=== PATIENT | female | born 1950 | race Caucasian/White ===

== ENCOUNTER 2021-10-13 11:36 | Emergency (ER) | payer MEDICARE, SELFPAY ==
[2021-10-13 11:39] VITALS: BP 141/95; PULSE 77; RESP 17; TEMP 36.3; O2SAT 99; BMI 18.9
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
[2021-10-13] MEDS: Lidocaine 1% (20 ml mdv) 20 ML Vial INFILT (14:30)
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
== END 2021-10-13 15:01 | disposition home or self-care (01) ==
PROVIDERS: Emergency Provider Emergency Medicine; PCP Internal Medicine; Visit Provider Emergency Medicine
DX: S62.511A Displaced fracture of proximal phalanx of right thumb, initial encounter for closed fracture (principal); V10.4XXA Pedal cycle driver injured in collision with pedestrian or animal in traffic accident, initial encounter; Y93.55 Activity, bike riding; S61.011A Laceration without foreign body of right thumb without damage to nail, initial encounter
CPT/HCPCS: 12001; 70450; 73140; 99283

== ENCOUNTER 2023-01-15 07:00 | Outpatient (RCR) | payer MEDICARE, SELFPAY ==
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
--- NOTE | 2023-01-15 07:29 | HP.PTDCSUM ---
Discharge Summary D/C summary: It has been my pleasure to treat RUEL MCKEON referred by HARLEY GRANADOS, with the diagnosis of BACK PAIN for a total of 7 visit(s). Discharge Date: Please see the following information for a summary of their discharge status. Subjective Subjective: Doing well Pain Left Back: Pain Intensity (Out of 10): 1 Overall Improvement % Improvement: 95 Objective Objective/Function: POSTURE: mild forward posture PALPATION: tender LS /SI left NEURO: denies paresthesia/tingling ,reflexes L3-4,L4-L5 ,L5-S1 GAIT: reciprocal pattern SYMMTRIES : align MMT: quads/hamstrings 4/5 ,hip flexion 4/5 ,hip abduction ( peak force) 28.9 R ,left 27.1 LUMBAR ROM: flexion min loss ,extension mod loss ,side glides min loss HIP IR : left 30 degrees ,50 degrees FLEXABLITY: hamstrings min loss ,piriformis left mod loss Goals Goal 1:: Patient to be I with HEP for back Goal 2:: Patient to improve lumbar ROM for function of recovery for ADL's without pain Goal 3:: Patient to demonstrate 50% improvement with decrease pain and improved function Goal 4:: Patient to improve back oswestry back by 5 points to improve QOL and function Plan Plan: D/C D/C Information d/c sentence: If there are questions or concerns regarding this patient's physical therapy, please feel free to call me at [phone]. Thank you for the referral of this patient. Sincerely, Seth Bosch, PT, Cert MDT, OCS Balance/Gait/Functional tests Balance/Special Test Scores Oswestry Low Back Score: 4 Improvement % Improvement: 95
== END 2023-01-15 10:45 | disposition home or self-care (01) ==
LOC: PT 07:00
PROVIDERS: PCP Internal Medicine
DX: M54.50 Low back pain, unspecified (principal)
CPT/HCPCS: 97110; 97162

== ENCOUNTER → 2023-05-13 | Outpatient (CLI) | payer MEDICARE, SELFPAY ==
--- OUTSIDE RECORDS SUMMARY | 2023-05-13 16:05 | XMS RPT_ITS | CCD ---
Author Name Unknown Address [address] [place] [address] Organization [facility] Care Team Providers Care Computer Network Engineer Name Role Phone Hang Castellano MD Primary Care Provider TALALMA, HANG D Primary Care Unavailable VASQUEZ, CHARLEE Referring Unavailable TALAMPAS, HANG D Primary Care Unavailable VASQUEZ, CHARLEE Attending Unavailable TALAMPAS, HANG D Referring Unavailable TALAMPAS, HANG D Primary Care Unavailable TALAMPAS, HANG D Primary Care Unavailable TALAMPAS, HANG D Primary Care Unavailable VASQUEZ, CHARLEE Referring Unavailable TALAMPAS, HANG D Primary Care Unavailable TALAMPAS, HANG D Referring Unavailable TALAMPAS, HANG D Primary Care Unavailable VASQUEZ, CHARLEE Referring Unavailable TALAMPAS, HANG D Primary Care Unavailable VASQUEZ, CHARLEE Referring Unavailable Allergies Allergy Classification Reported Allergen(s) Allergy Type Date of Onset Reaction(s) Facility (20 sources) Seasonal allergy; Translations: [SEASONAL ALLERGIES] Allergy to substance 9 Other: See Comments [facility] Work Phone: Medications Current Medications Medication Drug Class(es) Dates Sig (Normalized) Sig (Original) rosuvastatin calcium 5 mg oral tablet (10 sources) HMG-CoA Reductase Inhibitor Start: 12-24-2022 End: 12-24-2023 take 1 tablet by mouth once daily in the evening rosuvastatin (CRESTOR) 5 mg tablet Indications: Hypercholesterolemia Take 1 tablet by mouth once daily. Take in evening 90 tablet 3 12/24/2022 12/24/2023 Active Completed/Discontinued Medications Medication Drug Class(es) Dates Sig (Normalized) Sig (Original) calcium, elemental, ORAL Tab (20 sources) take 1 tablet by brittnee th twice daily calcium, elemental, ORAL Tab Take 1 tablet by mouth twice daily. 0 Active Problems Active Problems Problem Classification Problem Date Documented Da te Episodic/Chronic Disorders of lipid metabolism (20 sources) Hypercholesterolemi a; Translations: [Pure hypercholesterolemi a, unspecified] Onset: 07-06-2014 07-06-2014 Chronic Essential hypertension (20 sources) Essential hypertension; Translations: [Essential (primary) hypertension] Onset: 04-14-2011 10-11-2017 Chronic Osteoporosis (20 sources) Senile osteoporosis; Translations: [Age-related osteoporosis without current pathological fracture] Onset: 11-05-2017 11-05-2017 Chronic Other aftercare (1 source) Removal of sutures done; Translations: [Encounter for removal of sutures] Episodic Other injuries and conditions due to external causes (1 source) Injury of head; Translations: [Unspecified injury of head, initial encounter] Episodic Other screening for suspected conditions (not mental disorders or infectious disease) (16 sources) Patient encounter status; Translations: [Encounter for screening mammogram for malignant neoplasm of breast] Onset: 02-17-2023 Episodic Past or Other Problems Problem Classification Problem Date Documented Da te Episodic/Chronic Immunizations and screening for infectious disease (1 source) Encounter for immunization; Translations: [Encounter for immunization] Onset: 12-24-2022 Episodic Other aftercare (1 source) Other oysterman (current) drug therapy; Translations: [Encounter for long-term current use of medication] Onset: 11-26-2022 Episodic Pneumonia (except that caused by tuberculosis or sexually transmitted disease) (20 sources) Pneumonia; Translations: [Pneumonia, unspecified organism] Onset: 08-06-2010 04-14-2021 Episodic Results Test Name Value Interpretation Reference Range Facil ity Vital Signs Date Time Vital Sign Value Performing Clinician Melvin ge 12-24-2022 09:29-0400 Diastolic blood pressure 75 mm[Hg] Charlee Vasquez APRN.SUPPLIER QUALITY MANAGER Work Phone: [facility] 12-24-2022 09:29-0400 Heart rate 61 /min Charlee Vasquez APRN.SUPPLIER QUALITY MANAGER Work Phone: [facility] 12-24-2022 09:29-0400 Systolic blood pressure 129 mm[Hg] Charlee Vasquez APRN.SUPPLIER QUALITY MANAGER Work Phone: [facility] 12-24-2022 09:18-0400 Body height 160.7 cm Charlee Vasquez BLUNGER MACHINE OPERATOR.SUPPLIER QUALITY MANAGER Work Phone: [facility] 12-24-2022 09:18-0400 Body weight 51.26 kg Charlee Vasquez BLUNGER MACHINE OPERATOR.SUPPLIER QUALITY MANAGER Work Phone: [facility] 12-24-2022 09:18-0400 Respiratory rate 16 /min Charlee Vasquez BLUNGER MACHINE OPERATOR.SUPPLIER QUALITY MANAGER Work Phone: [facility] 12-19-2021 08:52-0400 Diastolic blood pressure 70 mm[Hg] Hang Castellano MD Work Phone: [facility] 12-19-2021 08:52-0400 Systolic blood pressure 112 mm[Hg] Hang Castellano MD Work Phone: [facility] 12-19-2021 08:03-0400 Body height 161 cm Hang Castellano MD Work Phone: [facility] 12-19-2021 08:03-0400 Body weight 49.9 kg Hang Castellano MD Work Phone: [facility] 12-19-2021 08:03-0400 Heart rate 69 /min Hang Castellano MD Work Phone: [facility] 12-19-2021 08:03-0400 SaO2% (BldA) [Mass fraction] 100 % Hang Castellano MD Work Phone: [facility] 10-21-2021 08:15-0400 Body temperature 98.71 [degF] Praveen Tinoco BLUNGER MACHINE OPERATOR.YARDING SUPERVISOR Work Phone: [facility] 10-21-2021 08:15-0400 Body weight 51.71 kg Praveen Tinoco BLUNGER MACHINE OPERATOR.YARDING SUPERVISOR Work Phone: [facility] 10-21-2021 08:15-0400 Diastolic blood pressure 82 mm[Hg] Praveen Tinoco BLUNGER MACHINE OPERATOR.YARDING SUPERVISOR Work Phone: [facility] 10-21-2021 08:15-0400 Heart rate 72 /min Praveen Tinoco BLUNGER MACHINE OPERATOR.YARDING SUPERVISOR Work Phone: [facility] 10-21-2021 08:15-0400 Respiratory rate 16 /min [facility] BLUN[facility] MACHINE OPERATOR.YARDING SUPERVISOR Work Phone: [facility] 10-21-2021 08:15-0400 SaO2% (BldA) [Mass fraction] 99 % [facility] BLUNGER MACHINE OPERATOR.YARDING SUPERVISOR Work Phone: [facility] 10-21-2021 08:15-0400 Systolic blood pressure 120 mm[Hg] [facility] BLUNGER MACHINE OPERATOR.YARDING SUPERVISOR Work Phone: [facility] Encounters Encounter Date Encounter Type Care Provider Facility Start: 04-03-2023 End: 04-04-2023 ambulatory HANG CASTELLANO Facility:[facility] Start: 04-01-2023 Telephone encounter Hang nesbitt MD Work Phone: [facility] Start: 03-23-2023 Refill Hang johnson MD Work Phone: [facility] Procedures Date Procedure Procedure Detail Performing Clinician Start: 04-03-2023 Lipid 1996 panel - S sammy or Plasma Hang Castellano MD Work Phone: Start: 03-16-2023 Us breast uni real t katelyn with image limited [facility] BLUNGER MACHINE OPERATOR.SUPPLIER QUALITY MANAGER Work Phone: Start: 03-16-2023 Digital breast tomosynthesis unilateral [facility] BLUNGER MACHINE OPERATOR.SUPPLIER QUALITY MANAGER Work Phone: Start: 02-17-2023 Screening digital br east tomosynthesis bi [facility] BLUNGER MACHINE OPERATOR.SUPPLIER QUALITY MANAGER Work Phone: Start: 11-26-2022 Lipid 1996 panel - S sammy or Plasma Hang Castellano MD Work Phone: Start: 02-09-2022 KAELYN SCREENING W JOSE Castellano MD Work Phone: Start: 02-09-2022 Mammography Mammograph y Coordinator Start: 12-29-2021 COLOGUARD Hang nesbitt MD Work Phone: Start: 12-19-2021 INFLUENZA SEASONAL QUADRIVALENT HIGH DOSE AGE 65+ Hang Castellano MD Work Phone: Start: 12-15-2020 Adult depression scr eening assessment Cira Teixeira MA Start: 09-30-2020 Mammography Cira Jessica johnson GREGORIO Start: 07-31-2011 Colonoscopy Cira johnson GREGORIO Plan of Treatment Date Care Activity Detail Author Start: 12-14-2029 Urine microalbumin profile [facility] Start: 04-03-2028 Lipid panel Lipid Screening [facility] Start: 11-27-2027 Lipid 1996 panel - S sammy or Plasma Lipid Screening [facility] Start: 11-27-2027 Lipid panel Lipid Screening [facility] Start: 11-27-2027 LIPID SCREEN LIPID SCREEN [facility] Start: 11-19-2026 LIPID SCREEN LIPID SCREEN [facility] Start: 04-03-2026 Diabetes Screening Diabetes Screenin [facility] Start: 12-10-2025 LIPID SCREEN LIPID SCREEN [facility] Start: 11-26-2025 DIABETES SCREEN DIABETES SCREEN [facility] Start: 11-26-2025 Diabetes Screening Diabetes Screenin g [facility] Start: 12-29-2024 COLOGUARD (FIT-DNA) COLOGUARD (FIT-D NA) [facility] Start: 12-29-2024 COLORECTAL CANCER SCREENING COLORECTAL CANCER SCREENING [facility] Start: 12-29-2024 Screening for malign ant neoplasm of colon [facility] Start: 11-19-2024 DIABETES SCREEN DIABETES SCREEN [facility] Start: 02-18-2024 Mammography Mammogram Screening [facility] Start: 02-18-2024 Screening for malign ant neoplasm of breast Mammogram Screening [facility] Start: 12-25-2023 ANNUAL PCP TEAM SYRUP BLENDER MABEL DISEASE VISIT ANNUAL PCP TEAM CHRONIC DISEASE VISIT [facility] Start: 12-25-2023 BP CONTROLLED (<130/80) BP CON TROLLED (<130/80) [facility] Start: 12-11-2023 DIABETES SCREEN DIABETES SCREEN [facility] Start: 09-14-2023 End: 05-02-2024 KAELYN SCREENING W JOSE KAELYN SCREENING W JOSE Radiology Routine Abnormal mammogram Expected: 09/14/2023 (Approximate), Expires: 05/02/2024 [facility] Work Phone: Immunizations Immunization Date Immunization Notes Care Provider Porter duarte 12-19-2021 influenza, high-dose , quadrivalent vaccine (FLUZONE HIGH DOSE QUADRIVALENT) Mammography Coordinator [facility] 12-19-2021 influenza virus vaccine, unspecified formulation Hang Castellano MD Work Phone: [facility] 02-28-2020 zoster vaccine recombinant Cira Teixeira [facility] Work Phone: 01-20-2020 influenza, high-dose , quadrivalent vaccine (FLUZONE HIGH DOSE QUADRIVALENT) Cira Teixeira MA [facility] 12-15-2019 tetanus toxoid, redu haley diphtheria toxoid, and acellular pertussis vaccine, adsorbed Cira Teixeira [facility] Work Phone: 12-15-2019 zoster vaccine recombinant Cira Teixeira [facility] Work Phone: 01-12-2019 influenza, high dose seasonal, preservative-free Cira Puneet [facility] Work Phone: 01-31-2018 influenza, high dose seasonal, preservative-free Cira Puneet [facility] Work Phone: 11-05-2017 pneumococcal polysaccharide vaccine, 23 valent Cira Puneet [facility] Work Phone: 02-10-2017 influenza, high dose seasonal, preservative-free Cira Puneet [facility] Work Phone: 10-26-2016 pneumococcal conjuga te vaccine, 13 valent Cira Puneet [facility] Work Phone: 07-06-2016 pneumococcal conjuga te vaccine, 13 valent Cira Teixeira [facility] Work Phone: 07-10-2014 zoster vaccine, live Cira Puneet [facility] Work Phone: 04-14-2011 pneumococcal polysaccharide vaccine, 23 valent Cira Teixeira MA [facility] 04-14-2011 tetanus toxoid, redu haley diphtheria toxoid, and acellular pertussis vaccine, adsorbed Cira Teixeira MA [facility] 04-17-2009 novel [id number], preservative-free, injectable Cira Teixeira MA [facility] Work Phone: Payers Date Payer Category Payer Unknown ANTHEM BLUE CROS S AND BLUE SHIELD ANTHEM MEDIBLUE O [id number] 2018-Present [phone] [id number] O [id number] 2018 Unknown ANTHEM BLUE CROS S AND BLUE SHIELD ANTHEM MEDIBLUE O [id number] 2018-Present [phone] [address] [place] [id number] O [id number] 2018 Unknown [id number] Social History Date Type Detail Facility Start: 07-06-2014 End: 12-19-2021 Tobacco smoking status NHIS Never smoked tobacco [facility] Start: 07-06-2014 End: 12-19-2021 Tobacco use and exposure Smokeless tobacco non-user [facility] Start: 12-17-2020 End: 12-19-2021 Alcohol intake Current non-drinker of alcohol (finding) [facility] Start: 12-15-2020 End: 12-12-2021 History SDOH Alcohol Frequency 1 [facility] Start: 12-15-2020 History SDOH Alcohol Std Drinks 98 [facility] Start: 12-15-2020 History SDOH Social Connections Phone 5 [facility] Start: 12-15-2020 History SDOH Social Connections Get Together 3 [facility] Start: 12-15-2020 End: 12-12-2021 History SDOH Social Connections Meetings 2 [facility] Start: 12-15-2020 History SDOH Physica l Activity DPW 7 [facility] Start: 12-15-2020 History SDOH Physica l Activity MPS 8 [facility] Start: 12-07-2019 Education 17 [facility] Start: 1950 Sex Assigned At Not on file [facility] Start: 10-03-2021 End: 02-09-2022 Exposure to SARS-CoV-2 (event) Not sure [facility] Work Phone: Start: 09-17-2022 End: 12-17-2022 History of Social function [facility] Start: 09-17-2022 End: 12-17-2022 Social connection and isolation panel [facility] How often do you att end christian or confucianist services? Patient refused [facility] Do you belong to any clubs or organizations such as christian groups, unions, fraternal or athletic groups, or school groups? Yes [facility] Are you now , , , , never or living with a partner? Refused [facility] How often to you hav e a drink containing alcohol? Never [facility] Do you feel stress - tense, restless, nervous, or anxious, or unable to sleep at night because your mind is troubled all the time - these days [OSQ] Not at all [facility] (I/We) worried wheth er (my/our) food would run out before (I/we) got money to buy more. Never true [facility] In the past 12 month s, was there a time when you were not able to pay the mortgage or rent on time? No [facility] Clinical Notes 02-04-2007 to 04-06-2023 Telephone Encounter - Hang Castellano MD - 04/06/2023 8:47 PM ESTTelephone Encounter - Jada Dickens MA - 04/06/2023 9:58 AM ESTTelephone Encounter - Cindy Gonzales - 04/01/2023 7:04 AM EST Note Date & Type Note Facility 04-06-2023 Miscellaneous Notes Filed order Spoke with landfill gas plant field technician. Orders that are needed are pended, please file. Jada Dickens MA Does this mean does not need diagnostic mammogram with tomosynthesis ordered? Please place Dx mammography left with a left Ultrasound order as patient is to have a 6 mo follow up from last Dx. I filed for mammo with jose on left for follow up on abnormal mammogram. Double check with radiology if this is correct order since not sure whether was to be diagnostic and if so, cannot fine diagnostic mammo with tomosynthesis to order. Need help finding correct order if so. It does not appear I can place those particular orders when I try to do so. Pt is asking if order can be placed for 6 months. Vivienne Mckeon LPN Left message to call & speak to nurse re: results. Megan Boudreaux LPN ----- Message from Charlee Vasquez APRN.SUPPLIER QUALITY MANAGER sent at 03/21/2023 3:37 PM EST ----- Likely benign asymmetry, short term follow up is recommended documented in this encounter [facility] 04-01-2023 Miscellaneous Notes Patient notified of providers message and verbalized understanding. ok, see below Phoned patient to find out what labs she needed done. Patient reports at last appt with Jyoti Deshpande, she was instructed to start rosuvastatin and re-check labs in 3 mths. Those labs are . Pended new orders. Please phone patient to let her know when she can come to lab to have blood draw. Pt came in for labs today. Looks like they have . Please advise and call pt GLYNN. Or ClairMailhart message Thank you documented in this encounter [facility] 03-23-2023 Miscellaneous Notes Patient has been identified by name and date of : Yes Requested Prescriptions Pending Prescriptions Disp Refills lisinopril (ZESTRIL) 5 mg tablet 90 tablet 3 Sig: Take 1 tablet by mouth once daily. RX INSTRUCTIONS: Patient aware RX will be sent to pharmacy. No need to notify patient. Patient last office visit: 12/24/22 Patient next office visit: 12/30/22 Jada Dickens MA documented in this encounter [facility] 03-23-2023 Note HNO ID: [id number] Author: Fernanda Scherer MA Service: ? Author Type: Ent Consultant Type: Progress Notes Filed: 03/23/2023 11:57 AM Note Text: POPULATION HEALTH NAVIGATION OUTREACH Action/I March 23, 2023 11:55 AM 2nd attempt Patient read and reviewed her Medication Adherence Reminder message sent on 03.22.2023. Thank you Patient Identified by Name and : No Outreach Outcome/Action Patient reviewed her Medication Adherence Reminder message sent on 03.22.23 Did you use a PCP flex slot to schedule this appointment? N/A Reason for Outreach Med Adherence Navigation Signature: Fernanda Scherer MA March 23, 2023 11:55 AM [facility] 03-22-2023 Note HNO ID: [id number] Author: Fernanda Scherer MA Service: ? Author Type: Ent Consultant Type: Progress Notes Filed: 03/22/2023 1:04 PM Note Text: POPULATION HEALTH NAVIGATION OUTREACH Action/FYI March 22, 2023 12:55 PM Medication Adherence Patient is due for the following medication refills per [place] Med Adherence list: ROSUVASTATIN CALCIUM 5 MG TAB Last refilled on 12.25.2022 [facility] Medication is due to be refilled on or around 03.25.2023 Outcome: Left message for patient on Exitround My chart message also sent Patient Identified by Name and : NO Outreach Outcome/Action Unable to reach patient: Left message MyChart message sent Did you use a PCP flex slot to schedule this appointment? N/A Reason for Outreach Med Adherence Payer: Payor: KIKI [employer] / Plan: ANTHEM MEDIBLActiwave HMO / Product Type: HMO / Care Gap Reviewed:: N/A Reminder: Reminder note to check Health Maintenance for items below Health Maintenance items due: There are no preventive care reminders to display for this patient. Navigation Signature: Fernanda Scherer MA March 22, 2023 12:55 PM [facility] 03-22-2023 Note Patient Outreach (NE TNAV) LORENA PRESTON ([id number]) 1950 F Date Time Provider Department 03/22/23 FERNANDA SCHERER During your visit today, we recorded the following information about you: Fernanda Scherer MA 03/22/2023 1:04 PM Signed POPULATION HEALTH NAVIGATION OUTREACH Action/March 22, 2023 12:55 PM Medication Adherence Patient is due for the following medication refills per [place] Med Adherence list: ROSUVASTATIN CALCIUM 5 MG TAB Last refilled on 12.25.2022 [facility] Medication is due to be refilled on or around 03.25.2023 Outcome: Left message for patient on voicemail My chart message also sent Patient Identified by Name and : NO Outreach Outcome/Action Unable to reach patient: Left message MyChart message sent Did you use a PCP flex slot to schedule this appointment? N/A Reason for Outreach Med Adherence Payer: Payor: KIKI [employer] / Plan: CRAZEKVNG MEDISangart HMO / Product Type: HMO / Care Gap Reviewed:: N/A Reminder: Reminder note to check Health Maintenance for items below Health Maintenance items due: There are no preventive care reminders to display for this patient. Navigation Signature: Fernanda Scherer MA March 22, 2023 12:55 PM Fernanda Scherer MA 03/23/2023 11:57 AM Signed POPULATION HEALTH NAVIGATION OUTREACH Action/March 23, 2023 11:55 AM 2nd attempt Patient read and reviewed her Medication Adherence Reminder message sent on 03.22.2023. Thank you Patient Identified by Name and : No Outreach Outcome/Action Patient reviewed her Medication Adherence Reminder message sent on 03.22.23 Did you use a PCP flex slot to schedule this appointment? N/A Reason for Outreach Med Adherence Navigation Signature: Fernanda Scherer MA March 23, 2023 11:55 AM Allergies As of Date: 03/22/2023 Noted Allergy Reaction SEASONAL ALLERGIES 01/12/2019 14 - Other: See Comments Comments: sneezing with fall leaves Date Reviewed: 12/24/2022 Reviewed by: Charlee Vasquez APRN.SUPPLIER QUALITY MANAGER - Fully Assessed Reason for Visit: Population Health Navigation Outreach [3910] Cmt: Kiki Medication Adherence Prescriptions as of 03/23/2023 - rosuvastatin (CRESTOR) 5 mg tablet Take 1 tablet by mouth once daily. Take in evening - lisinopril (ZESTRIL, PRINIVIL) 5 mg tablet Take 1 tablet by mouth once daily. - denosumab (PROLIA) 60 mg/mL Inject 1 mL subcutaneously once every 6 months. (September and March) - Dhctccwgpzz-Ntibtymrj-Wkk C-Mn 500-400 mg cap Take by mouth. - Doxycycline Monohydrate (ORACEA) 40 mg capsule Take 1 capsule by mouth once daily. for rosacea - Cholecalciferol, Vitamin D3, 1,000 unit ORAL Cap Take 2 capsules by mouth once daily. - calcium, elemental, ORAL Tab Take 1 tablet by mouth twice daily. Problem List As Of Date 03/22/2023 Noted Resolved Mixed hyperlipidemia [E78.2] 02/04/2007 07/06/2014 Elevated blood pressure reading without diagnos*02/04/2007 04/14/2011 Age-related osteoporosis without current pathol* Pneumonia [J18.9] 08/06/2010 Essential hypertension [I10] 04/14/2011 Hypercholesterolemia [E78.00] 07/06/2014 Osteoporosis without current pathological fract*12/09/2017 Encounter Status:Closed by FERNANDA SCHERER on 03/22/23 [facility] 03-22-2023 History of Present illness Narrative POPULATION HEALTH NAVIGATION OUTREACH Action/I March 22, 2023 12:55 PM Medication Adherence Patient is due for the following medication refills per [place] Med Adherence list: ROSUVASTATIN CALCIUM 5 MG TAB Last refilled on 12[facility]25.2022 [facility] Medication is due to be refilled on or around 03.25.2023 Outcome: Left message for patient on Exitround My chart message also sent Patient Identified by Name and : NO Outreach Outcome/Action Unable to reach patient: Left message Glob[employer] USAhart message sent Did you use a PCP flex slot to schedule this appointment? N/A Reason for Outreach Med Adherence Payer: Payor: KIKI [employer] [facility] / Plan: ANTH MEDIBLUE HMO / Product Type: HMO / Care Gap Reviewed:: N/A Reminder: Reminder note to check Health Maintenance for items below Health Maintenance items due: There are no preventive care reminders to display for this patient. Navigation Signature: Fernanda Scherer MA March 22, 2023 12:55 PM documented in this encounter [facility] 03-22-2023 Note HNO ID: [id number] Author: Cindy Paul LPN Service: ? Author Type: ? Type: Progress Notes Filed: 03/22/2023 10:01 AM Note Text: Patient presents for Prolia injection. Denies any problems at this time. Patient instructed on any SE of medication, verbalized understanding and agreed to proceed with treatment. Tolerated injection well. Cindy Paul LPN [facility] 03-22-2023 History of Present illness Narrative Patient presents for Prolia injection. Denies any problems at this time. Patient instructed on any SE of medication, verbalized understanding and agreed to proceed with treatment. Tolerated injection well. Cindy Paul LPN documented in this encounter [facility] 03-16-2023 Note HNO ID: [id number] Author: Rocio Kim RDMS Service: ? Author Type: Steep Tender Type: Progress Notes Filed: 03/16/2023 1:56 PM Note Text: Radiology Service Progress Note PATIENT NAME: Lorena Preston DATE OF SERVICE: March 16, 2023 TIME: 1:56 PM PATIENT IDENTITY VERIFICATION COMPLETED USING TWO (2) IDENTIFIERS: Name and Date of confirmed by patient verbally. FALL SCREENING: Has the patient had 2 falls in the last year or 1 fall with injury or currently using an Ambulatory Assistive Device (Walker, Cane, Wheelchair, Crutches, etc.)? No PATIENT GENDER DATA: Female. status: : No status: NO. PATIENT RELEVANT IMPLANT DATA REVIEWED: Not Applicable RADIOLOGY DEPARTMENT: Ultrasound PERIPHERAL IV DATA: Not applicable SIGNED BY: Rocio Kim RDMS RVT March 16, 2023 1:56 PM [facility] 03-16-2023 Note HNO ID: [id number] Author: Layla Macario Mammo Norm Service: ? Author Type: Garment Supervisor Type: Progress Notes Filed: 03/16/2023 10:11 AM Note Text: Radiology Service Progress Note PATIENT NAME: Lorena Preston DATE OF SERVICE: March 16, 2023 TIME: 9:58 AM PATIENT IDENTITY VERIFICATION COMPLETED USING TWO (2) IDENTIFIERS: Name and Date of confirmed by patient verbally. FALL SCREENING: Has the patient had 2 falls in the last year or 1 fall with injury or currently using an Ambulatory Assistive Device (Walker, Cane, Wheelchair, Crutches, etc.)? No PATIENT GENDER DATA: Female. status: : No status: NO. PATIENT RELEVANT IMPLANT DATA REVIEWED: Not Applicable RADIOLOGY DEPARTMENT: Mammography PERIPHERAL IV DATA: Not applicable SIGNED BY: Layla Macario Smart Sparrow March 16, 2023 9:58 AM [facility] 03-16-2023 History of Present illness Narrative Radiology Service Progress Note PATIENT NAME: Lorena Preston DATE OF SERVICE: March 16, 2023 TIME: 1:56 PM PATIENT IDENTITY VERIFICATION COMPLETED USING TWO (2) IDENTIFIERS: Name and Date of confirmed by patient verbally. FALL SCREENING: Has the patient had 2 falls in the last year or 1 fall with injury or currently using an Ambulatory Assistive Device (Walker, Cane, Wheelchair, Crutches, etc.)? No PATIENT GENDER DATA: Female. status: : No status: NO. PATIENT RELEVANT IMPLANT DATA REVIEWED: Not Applicable RADIOLOGY DEPARTMENT: Ultrasound PERIPHERAL IV DATA: Not applicable SIGNED BY: Rocio Kim RDMS [facility] March 16, 2023 1:56 PM documented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 To Contact [facility] Diagnoses Abnormal mammogram Procedures KAELYN DIAGNOSTIC LEFT DIAGNOSTIC MAMMOGRAPHY COMPUTER-AIDED DETCJ UNI Hang Castellano MD [address] [place] [address] [facility] [address] [place] [address] Referral ID Status Reason Start Date Expiration Date Visits Requested Visits Authorized [id number] Pending Review Auto-Generat ed Referral 3 05/05/2024 1 1 * Diagnostic Procedure Only (Routine) - Authorized Specialty Diagnoses / Procedures Referred By Kostas shipman Referred To Contact [facility] Diagnoses Abnormal mammogram Procedures KAELYN SCREENING W JOSE SCREENING DIGITAL BREAST TOMOSYNTHESIS BI SCREENING MAMMOGRAPHY BI 2-VIEW BREAST INC CAD Hang Castellano MD [address] [place] [address] [facility] [address] [place] [address] Referral ID Status Reason Start Date Expiration Date Visits Requested Visits Authorized [id number] Authorized Auto-Generat ed Referral 09/14/2023 05/02/2024 1 1 [facility] for visit Narrative* Diagnostic Procedure Only (Routine) - Closed Specialty Diagnoses / Procedures Referred By Kostas shipman Referred To Contact [facility] Diagnoses Encounter for screening mammogram for breast cancer Procedures KAELYN SCREENING W JOSE SCREENING DIGITAL BREAST TOMOSYNTHESIS BI SCREENING MAMMOGRAPHY BI 2-VIEW BREAST INC CAD Charlee Vasquez, AUBREY.SUPPLIER QUALITY MANAGER [address] [place] [address] [facility] [address] [place] [address] Referral ID Status Reason Start Date Expiration Date V isits Requested Visits Authorized [id number] Closed Auto-Generate d Referral 12/24/2022 01/23/2024 1 1 [facility] for visit Narrative* Diagnostic Procedure Only (Routine) - Closed Specialty Diagnoses / Procedures Referred By Kostas shipman Referred To Contact [facility] Diagnoses Breast cancer screening by mammogram Dense breasts Procedures KAELYN SCREENING W JOSE SCREENING DIGITAL BREAST TOMOSYNTHESIS BI SCREENING MAMMOGRAPHY BI 2-VIEW BREAST INC Hang Mason MD [address] [place] [address] [facility] [address] [place] [address] Referral ID Status Reason Start Date Expiration Date V isits Requested Visits Authorized [id number] Closed Auto-Generate d Referral 12/19/2021 01/18/2023 1 1 [facility] for visit Narrative* Diagnostic Procedure Only (Routine) - Closed Specialty Diagnoses / Procedures Referred By Kostas shipman Referred To Contact [facility] Diagnoses Abnormal mammogram of left breast Procedures KAELYN DIAGNOSTIC LEFT DIAGNOSTIC MAMMOGRAPHY COMPUTER-AIDED DETCJ UNI Charlee Vasquez, BLUNGER MACHINE OPERATOR.SUPPLIER QUALITY MANAGER [address] [place] [address] [facility] [address] [place] [address] Referral ID Status Reason Start Date Expiration Date V isits Requested Visits Authorized [id number] Closed Auto-Generate d Referral 02/18/2023 03/19/2024 1 1 [facility] Advance Directives No Advanced Directives Records FoundDocuments on File Type Date Recorded Patient Steam Plant Operator Expl anation Advance Directive(s) 01/03/2021 2:27 PM Documents on File Type Date Recorded Patient Steam Plant Operator Expl anation Advance Directive(s) 01/03/2021 2:27 PM Medications Administered Section Active Administered Medications - up to 3 most recent administrations Medication Order MAR Action Action Date Dose Rate Site denosumab 60 mg injection (PROLIA) 60 mg, SUBCUTANEOUS, EVERY 6 MONTHS, 3 doses, First dose on 03/19/21 at 0000, Last dose on 03/14/22 at 0000, Allow To Come To Room Temperature Before Administration. REFRIGERATE Given 09/17/2021 9:04 AM EDT 60 mg Arm, Left Active Administered Medications - up to 3 most recent administrations Medication Order MAR Action Action Date Dose Rate Site denosumab 60 mg injection (PROLIA) 60 mg, SUBCUTANEOUS, EVERY 6 MONTHS, 2 doses, First dose on Lidya 09/17/22 at 0000, Last dose on Wed03/16/23 at 0000, Allow To Come To Room Temperature Before Administration. REFRIGERATE Given 09/17/2022 9:12 AM EDT 60 mg Arm, Left Inactive Administered Medications - up to 3 most recent administrations Medication Order MAR Action Action Date Dose Rate Site denosumab 60 mg injection (PROLIA) 60 mg, SUBCUTANEOUS, EVERY 6 MONTHS, 2 doses, First dose on Lidya 09/17/22 at 0000, Last dose on Wed03/16/23 at 0000, Allow To Come To Room Temperature Before Administration. REFRIGERATE Given 03/22/2023 9:59 AM EST 60 mg Arm, Left Summary Purpose Family History No Family History Records Found Additional Source Comments Source Comments (unrecognize d section and content) In the event this informatio n is protected by the Federal Confidentiality of Alcohol and Drug Abuse Patient Records regulations: The Federal rules restrict any use of the information to criminally investigate or prosecute any alcohol or drug abuse patient.[facility] the event this information is protected by the Federal Confidentiality of Alcohol and Drug Abuse Patient Records regulations: The Federal rules restrict any use of the information to criminally investigate or prosecute any alcohol or drug abuse patient.[facility] the event this information is protected by the Federal Confidentiality of Alcohol and Drug Abuse Patient Records regulations: The Federal rules restrict any use of the information to criminally investigate or prosecute any alcohol or drug abuse patient.[facility] the event this information is protected by the Federal Confidentiality of Alcohol and Drug Abuse Patient Records regulations: The Federal rules restrict any use of the information to criminally investigate or prosecute any alcohol or drug abuse patient.[facility] the event this information is protected by the Federal Confidentiality of Alcohol and Drug Abuse Patient Records regulations: The Federal rules restrict any use of the information to criminally investigate or prosecute any alcohol or drug abuse patient.[facility] the event this information is protected by the Federal Confidentiality of Alcohol and Drug Abuse Patient Records regulations: The Federal rules restrict any use of the information to criminally investigate or prosecute any alcohol or drug abuse patient.[facility] the event this information is protected by the Federal Confidentiality of Alcohol and Drug Abuse Patient Records regulations: The Federal rules restrict any use of the information to criminally investigate or prosecute any alcohol or drug abuse patient.[facility] the event this information is protected by the Federal Confidentiality of Alcohol and Drug Abuse Patient Records regulations: The Federal rules restrict any use of the information to criminally investigate or prosecute any alcohol or drug abuse patient.[facility] the event this information is protected by the Federal Confidentiality of Alcohol and Drug Abuse Patient Records regulations: The Federal rules restrict any use of the information to criminally investigate or prosecute any alcohol or drug abuse patient.[facility] the event this information is protected by the Federal Confidentiality of Alcohol and Drug Abuse Patient Records regulations: The Federal rules restrict any use of the information to criminally investigate or prosecute any alcohol or drug abuse patient.[facility] the event this information is protected by the Federal Confidentiality of Alcohol and Drug Abuse Patient Records regulations: The Federal rules restrict any use of the information to criminally investigate or prosecute any alcohol or drug abuse patient.[facility] the event this information is protected by the Federal Confidentiality of Alcohol and Drug Abuse Patient Records regulations: The Federal rules restrict any use of the information to criminally investigate or prosecute any alcohol or drug abuse patient.[facility] the event this information is protected by the Federal Confidentiality of Alcohol and Drug Abuse Patient Records regulations: The Federal rules restrict any use of the information to criminally investigate or prosecute any alcohol or drug abuse patient.[facility] the event this information is protected by the Federal Confidentiality of Alcohol and Drug Abuse Patient Records regulations: The Federal rules restrict any use of the information to criminally investigate or prosecute any alcohol or drug abuse patient.[facility] the event this information is protected by the Federal Confidentiality of Alcohol and Drug Abuse Patient Records regulations: The Federal rules restrict any use of the information to criminally investigate or prosecute any alcohol or drug abuse patient.[facility] the event this information is protected by the Federal Confidentiality of Alcohol and Drug Abuse Patient Records regulations: The Federal rules restrict any use of the information to criminally investigate or prosecute any alcohol or drug abuse patient.[facility] the event this information is protected by the Federal Confidentiality of Alcohol and Drug Abuse Patient Records regulations: The Federal rules restrict any use of the information to criminally investigate or prosecute any alcohol or drug abuse patient.[facility] the event this information is protected by the Federal Confidentiality of Alcohol and Drug Abuse Patient Records regulations: The Federal rules restrict any use of the information to criminally investigate or prosecute any alcohol or drug abuse patient.[facility] the event this information is protected by the Federal Confidentiality of Alcohol and Drug Abuse Patient Records regulations: The Federal rules restrict any use of the information to criminally investigate or prosecute any alcohol or drug abuse patient.[facility] the event this information is protected by the Federal Confidentiality of Alcohol and Drug Abuse Patient Records regulations: The Federal rules restrict any use of the information to criminally investigate or prosecute any alcohol or drug abuse patient.[facility] the event this information is protected by the Federal Confidentiality of Alcohol and Drug Abuse Patient Records regulations: The Federal rules restrict any use of the information to criminally investigate or prosecute any alcohol or drug abuse patient.[facility] Reason for Visit (unrecogniz ed section and content) Specialty Diagnoses / Procedures Referred By Contac t Referred To Contact Internal Medicine / FAMILY MEDICINE Diagnoses Age-related osteoporosis without current pathological fracture [M81.0] - Primary Procedures NURSE Hang Thompson MD [address] [place] [address] Nurse, Heike [address] [place] [address] Referral ID Status Reason Start Date Expiration Date V isits Requested Visits Authorized [id number] Authorized 03/22/2023 03/21/2024 2 2 Reason Onset Date Comments Population Health Navigation Outreach 07/17/2021 [place] Care Gaps Reason Comments Suture Removal 4 sutures in right t humb placed 8 days ago Reason Onset Date Comments Yearly Exam Breast Problem 12/19/2021 Mammogram at [facility] Specialty [place] Reason Onset Date Comments Refill Request 04/10/2022 Reason Comments Orders Reason Comments Yearly Exam Reason Comments Medication Problem Reason Comments Radiology US Specialty Diagnoses / Procedures Referred By Kostas shipman Referred To Contact [facility] Diagnoses Abnormal mammogram of left breast Procedures US BREAST LTD LEFT US BREAST UNI REAL TIME WITH IMAGE LIMITED Charlee Vasquez APRN.CNS [address] [place] [address] [facility] [address] [place] [address] Referral ID Status Reason Start Date Expiration Date V isits Requested Visits Authorized [id number] Closed Auto-Generate d Referral 02/18/2023 03/19/2024 1 1 Reason Onset Date Comments Population Health Navigation Outreach 03/22/2023 [place] Medication Adherence Reason Onset Date Comments Refill Request 03/23/2023 Reason Onset Date Comments Results Breast Problem 04/03/2023 Mammogram at [facility] Specialty [place] Care Teams (unrecognized sec tion and content) Computer Network Engineer Relationship Specialty Start Date End Date Hang Castellano MD [address] [place] [address] PCP - General 02/07/02 Computer Network Engineer Relationship Specialty Start Date End Date Hang Castellano MD [address] [place] [address] [id number] PCP - General 02/07/02 Computer Network Engineer Relationship Specialty Start Date End Date Hang Castellano MD [address] [place] [address] [id number] [phone] PCP - General 02/07/02 Computer Network Engineer Relationship Specialty Start Date End Date Hang Castellano MD [address] [place] [address] PCP - General 02/07/02 Computer Network Engineer Relationship Specialty Start Date End Date Hang Castellano MD [address] [place] [address] PCP - General 02/07/02 Computer Network Engineer Relationship Specialty Start Date End Date Hang Castellano MD [address] [place] [address] PCP - General 02/07/02 Computer Network Engineer Relationship Specialty Start Date End Date Hang Castellano MD [address] [place] [address] PCP - General 02/07/02 Computer Network Engineer Relationship Specialty Start Date End Date Hang Castellano MD [address] [place] [address] PCP - General 02/07/02 Computer Network Engineer Relationship Specialty Start Date End Date Hang Castellano MD [address] [place] [address] PCP - General 02/07/02 Computer Network Engineer Relationship Specialty Start Date End Date Hang Castellano MD [address] [place] [address] PCP - General 02/07/02 Computer Network Engineer Relationship Specialty Start Date End Date Hang Castellano MD [address] [place] [address] PCP - General 02/07/02 Computer Network Engineer Relationship Specialty Start Date End Date Hang Castellano MD [address] [place] [address] PCP - General 02/07/02 Computer Network Engineer Relationship Specialty Start Date End Date Hang Castellano MD [address] [place] [address] PCP - General 02/07/02 Computer Network Engineer Relationship Specialty Start Date End Date Hang Castellano MD [address] [place] [address] [facility] - General 02/07/02 Computer Network Engineer Relationship Specialty Start Date End Date Hang Castellano MD [address] [place] [address] [facility] - General 02/07/02 Computer Network Engineer Relationship Specialty Start Date End Date Hang Castellano MD [address] [place] [address] [facility] General 02/07/02 Computer Network Engineer Relationship Specialty Start Date End Date Hang Castellano MD [address] [place] [address] [facility] General 02/07/02 INFORMATION SOURCE (unrecogn ized section and content) FOR RECORDS PERTAINING TO PATIENTS WHO ARE OR HAVE BEEN ENROLLED IN A CHEMICAL DEPENDENCY/SUBSTANCEABUSE PROGRAM, SOME INFORMATION MAY BE OMITTED. This clinical summary was aggregated from multiple sources. Caution should be exercised in using it in the provision of clinical care. This summary normalizes information from multiple sources, and as a consequence, information in this document may materially change the coding, format and clinical context of patient data. In addition, data may be omitted in some cases. CLINICAL DECISIONS SHOULD BE BASED ON THE PRIMARY CLINICAL RECORDS. [facility] [employer] [facility]. provides no warranty or guarantee of the accuracy or completeness of information in this document.
== END | disposition home or self-care (01) ==
LOC: LABSPEC 15:34
PROVIDERS: PCP Internal Medicine; Referring Provider Otolaryngology Otolaryngology/Facial Plastic Surgery; Visit Provider Otolaryngology Otolaryngology/Facial Plastic Surgery
DX: J32.9 Chronic sinusitis, unspecified (principal)
CPT/HCPCS: 87070; 87205